=== PATIENT | male | born 1985 | race African-American/Black ===

== ENCOUNTER → 2019-04-15 | Outpatient (CLI) | payer OTHER ==
--- NOTE | 2019-04-15 15:45 | RAD ---
EXAM: Right hand, 3 views. HISTORY: Pain. COMPARISON: None. FINDINGS: 3 views of the right hand are obtained. There is no fracture, dislocation or subluxation. No foreign body is seen. IMPRESSION: No acute osseous finding. Electronically signed by: Taylor Olvera MD (04/15/2019 3:42 PM) [id number]
== END | disposition home or self-care (01) ==
LOC: PMG 14:35
PROVIDERS: ATTEND Registered Nurse
DX: M79.641 Pain in right hand (principal)
CPT/HCPCS: 73130